=== PATIENT | female | born 1995 | race Caucasian/White ===

== ENCOUNTER → 2016-07-01 | Outpatient (CLI) | payer OTHER ==
[~2016-07-01] VITALS: Ht 162.6 cm; Wt 71.5 kg
[~2016-07-01] MED LIST: BACTRIM,SEPT1 TABLET PO; BIRTH CONTROL; ENDOCET 5-3251 EACH PO; IBUPROFEN800 MG PO; LAMICTAL25 MG; MACROBID100 MG PO; PRENATAL TABLE1 EAC3 PO; ZOFRAN8 MG PO
[2016-07-01 11:43] VITALS: BP 121/59
== END | disposition home or self-care (01) ==
LOC: IVINF 06-04 16:30
DX: O36.092 Maternal care for other rhesus isoimmunization, second trimester (principal); Z3A.24 24 weeks gestation of pregnancy
CPT/HCPCS: 96372; J2790

== ENCOUNTER 2016-08-24 09:08 | Inpatient (IN) | payer OTHER ==
[~2016-08-24] VITALS: Ht 165.1 cm; Wt 74.4 kg
[2016-08-24] VITALS (12 sets, daily range): BP systolic 116–141; BP diastolic 64–90
[2016-08-24 10:45] LABS: EOSINOPHIL (%) 0.6 % (0-5); EOSINOPHIL COUNT 0.1 K/uL (0-0.3); HEMATOCRIT 32.1 % (36.0-46.0); IMMATURE GRANULOCYTE (%) 0.6 % (0.0-0.7); IMMATURE GRANULOCYTE COUNT 0.1 K/uL; INSTRUMENT ABS NEUTROPHIL CT 7.2 K/uL; LYMPHOCYTE COUNT 1.9 K/uL (1.0-2.8); MCH 28.3 PG (29.0-34.0); MCHC 31.8 G/DL (30.0-36.0); MCV 88.9 FL (83-99); MEAN PLAT.VOLUME 11.6 uM^3 (9.5-12.4); MONOCYTE (%) 6.5 % (3-12); MONOCYTE COUNT 0.6 K/uL (0-0.8); NEUTROPHIL (%) 72.9 % (45-76); NEUTROPHIL COUNT 7.2 K/uL (1.8-6.4); PLATELET COUNT 186 K/uL (156-360); RBC DIS.WIDTH-CV 14.6 % (11.8-14.6); RBC DIS.WIDTH-SD 47.2 % (39-53); RED BLOOD COUNT 3.61 M/uL (3.80-5.20); WHITE BLOOD COUNT 9.9 K/uL (4.1-10.2)
[2016-08-24 11:57] LABS: AMPHETAMINES QUANT VALUE 0 NG/ML; BARBITUATES QUANT VALUE 0 NG/ML; BENZODIAZEPINES QUANT VALUE 0 NG/ML; BENZODIAZEPINES, URINE SCREEN Negative (200 ng/mL); OPIATES QUANTITATIVE VALUE 0 NG/ML; PHENCYCLIDINE QUANT VALUE 0 NG/ML
[2016-08-25 05:49] LABS: EOSINOPHIL (%) 0.6 % (0-5); EOSINOPHIL COUNT 0.1 K/uL (0-0.3); HEMATOCRIT 28.5 % (36.0-46.0); IMMATURE GRANULOCYTE (%) 0.6 % (0.0-0.7); IMMATURE GRANULOCYTE COUNT 0.1 K/uL; INSTRUMENT ABS NEUTROPHIL CT 8.6 K/uL; LYMPHOCYTE COUNT 2.8 K/uL (1.0-2.8); MCH 27.7 PG (29.0-34.0); MCHC 31.2 G/DL (30.0-36.0); MCV 88.8 FL (83-99); MEAN PLAT.VOLUME 11.7 uM^3 (9.5-12.4); MONOCYTE (%) 6.9 % (3-12); MONOCYTE COUNT 0.9 K/uL (0-0.8); NEUTROPHIL COUNT 8.6 K/uL (1.8-6.4); PLATELET COUNT 155 K/uL (156-360); RBC DIS.WIDTH-CV 14.7 % (11.8-14.6); RBC DIS.WIDTH-SD 47.8 % (39-53); RED BLOOD COUNT 3.21 M/uL (3.80-5.20); WHITE BLOOD COUNT 12.4 K/uL (4.1-10.2)
[2016-08-25] MEDS ORDERED: CHROMAGEN SOFT1 EACH PO (08:59)
[2016-08-25] MEDS ORDERED: MOTRIN800 MG PO (08:59)
[2016-08-25] MEDS ORDERED: PRENATAL VITAM1 EAC6 PO (08:59)
[2016-08-25 22:39] VITALS: BP 106/59
[2016-08-26 07:18] VITALS: BP 108/56
== END 2016-08-26 11:55 | disposition home or self-care (01) | DRG 775 ==
LOC: LDRP-OP → 2WEST 09:09 → LDRP-OP 09-26 16:02
PROVIDERS: Midwife
DX: O70.0 First degree perineal laceration during delivery (principal); O69.81X0 Labor and delivery complicated by cord around neck, without compression, not applicable or unspecified; Z3A.39 39 weeks gestation of pregnancy; Z37.0 Single live birth; O99.324 Drug use complicating childbirth; F12.90 Cannabis use, unspecified, uncomplicated
CPT/HCPCS: 80306 90; 85025; J0595